=== PATIENT | male | born 1955 | race Two or more races ===

== ENCOUNTER 2020-07-14 14:51 | Outpatient (CLI) | payer OTHER | END 2020-07-14 14:59 | disposition home or self-care (01) | LOC: SONOGRAMA 14:51 | PROVIDERS: ATTEND Surgery | DX: N41.0 Acute prostatitis (principal) ==

== ENCOUNTER 2024-08-07 20:03 | Emergency (ER) | payer OTHER ==
[~2024-08-07] VITALS: Ht 177.8 cm; Wt 83.9 kg
[2024-08-07] MEDS ORDERED: TADALAFIL5 MG PO (20:51)
[2024-08-07] MEDS ORDERED: CIPRO500 MG PO (21:35)
[2024-08-07] MEDS ORDERED: MOMETASONE FURO15 G1 TOP (22:59)
== END 2024-08-07 23:38 | disposition home or self-care (01) ==
LOC: ER 20:05
DX: R33.9 Retention of urine, unspecified (principal); I10 Essential (primary) hypertension

== ENCOUNTER 2025-02-07 21:28 | Emergency (ER) | payer OTHER ==
[~2025-02-07] VITALS: Ht 177.8 cm; Wt 85.3 kg
[~2025-02-07 21:28] MED LIST: CIPRO500 MG PO; MOMETASONE FURO15 G1 TOP; TADALAFIL5 MG PO
[2025-02-07] MEDS ORDERED: TAMSULOSIN HCL 0.4 MG CAP PO ONE ×2 (21:41→21:45)
[2025-02-07 22:00] LABS: HEMATOCRIT 46.2 % (39.0-48.0); HEMOGLOBIN 15.8 g/dL (13-16.00); MEAN CELL VOLUME 94.6 fL (80.0-100.00); MEAN CORPUSCULAR HEMOGLOBIN 32.4 pg (27.00-32.0); MEAN CORPUSCULAR HGB CONC 34.3 g/dl (32.0-36.0); PLATELET COUNT 213 K/uL (150-450); RED BLOOD COUNT 4.89 M/uL (4.00-6.00); RED CELL DISTRIBUTION WIDTH 13.3 % (11.5-14.5)
[2025-02-07 22:15] LABS: PH,URINE 5.5 (5.0-8.0); URINE APPEARANCE Clear; URINE BILIRRUBIN Negative (NEGATIVE); URINE BLOOD Negative; URINE COLOR Yellow; URINE GLUCOSE Negative (NEGATIVE); URINE KETONE Trace (NEGATIVE); URINE LEUKOCYTE Negative; URINE NITRATE Negative; URINE PROTEIN Trace (NEGATIVE)
[2025-02-07 22:19] LABS: URINE BACTERIA 17.1 uL (0.0-1933); URINE EPITHELIAL CELLS 1.8 uL (0.0-38.8); URINE RBC 2.3 uL (0.0-20.8); URINE WBC 16.7 uL (0.0-23.2)
[2025-02-07 22:53] LABS: URINE CAST 0.44 uL (0.0-1.40)
== END 2025-02-07 23:52 | disposition home or self-care (01) ==
LOC: ER 21:29
PROVIDERS: Emergency Medicine
DX: R30.0 Dysuria (principal); K57.30 Diverticulosis of large intestine without perforation or abscess without bleeding